=== PATIENT | female | born 1950 | race Caucasian/White ===

== ENCOUNTER → 2017-04-05 | Outpatient (CLI) | payer MEDICARE, OTHER ==
[~2017-04-05] MED LIST: ACETAMINOPHEN-1 EAC1 PO; ALDACTONE50 MG PO; ARIXTRA; BACTRIM DS TAB1 EACH PO; BONIVA150 MG PO; CIPRO250 M1 PO; COD LIVER OIL1 EAC4; DARVOCET; FISH OIL 1,001000 M2 PO; FLEXERIL; FOLIC ACID 40400 MC1; GABAPENTIN100 MG PO; GLUCOSAMINE HC500 MG; GLUCOSAMINE HC500 MG PO; INDAPAMIDE1.25 MG PO; IRON325; LEVAQUIN 500 M500 M2 PO; MECLIZINE HCL25 M1 PO; MEDROLDOSEPACK PO; MIRALAX255 GM PO; MOBIC15 MG; MOBIC15 MG PO; NEXIUM PO; NEXIUM40 MG PO; OCUVITE TABLET1 EAC1; OMEPRAZOLE 20 M20 M1; OXYBUTYNIN 5 MG5 M1 PO; OXYBUTYNIN 5 MG5 M2 PO; OXYCODONE HCL 55 MG; PERCOCET 5-3251 EACH PO; PERCOCET PO; PREDNISONE 20 M20 MG PO; PROPRANOLOL 20M20 M1 PO; PROTONIX40 M4 PO; PROZAC20 MG; PROZAC40 MG PO; STOOL SOFTNER; TAMSULOSIN HCL0.4 MG PO; TESSALON PERLE100 M1 PO; TRIPLE ANTIBIOT30 G2 TP; VENTOLIN HFA 1818 GM INH; ZOFRAN4 MG PO
== END ==
LOC: M.RAD 08:35
DX: Z12.31 Encounter for screening mammogram for malignant neoplasm of breast (principal)

== ENCOUNTER → 2017-09-24 | Outpatient (CLI) | payer MEDICARE, OTHER | LOC: M.RAD 09-17 13:30 | DX: M81.0 Age-related osteoporosis without current pathological fracture (principal); M85.89 Other specified disorders of bone density and structure, multiple sites; Z78.0 Asymptomatic menopausal state ==

== ENCOUNTER → 2018-07-11 | Outpatient (CLI) | payer MEDICARE, OTHER ==
--- NOTE | ~2018-07-11 | PAINCON ---
[address] [address] PAIN MANAGEMENT CONSULTATION Name: MAXIMYLESEDVIN KIRBY Room: [facility] MARINA Yañez#: [id number] Admission: 07/11/18 Attend Phys: Viridiana Evans MD Discharge: Date of : 54 Report #: [id number] THIS REPORT FOR: //name// CC: [place] NP DATE OF SERVICE: 07/11/2018 CHIEF COMPLAINT: Back pain with pain that is radiating down into the left and right legs. It has been problematic since 2015. She has noticed a return of low back pain and notes that it seems to have intensified. Had a Medrol Dosepak in October 2016. It was felt that was helpful. Finds that Meloxicam is helpful on a daily basis as well. Notes that her pain is worse with activities. Notes that the cold weather, walking, standing, climbing stairs, bending, and lifting are problematic. Notes that her medication, use of heat, and rest have been beneficial as well. She has a history of L5-S1 radiculopathy. She has returned to the pain clinic with the hopes of trying another conservative approach with a Medrol Dosepak. ALLERGIES: DEMEROL, CAUSE SEIZURES, ACETAMINOPHEN, FROM USE OF VICODIN, VIOXX, REGLAN, MILD NAUSEA AND VOMITING WERE EXPERIENCED. CURRENT MEDICATIONS: Fish oil, Prozac 40 mg, folic acid 400 mcg, glucosamine 500 mg, indapamide ____ mg for kidney stones, omeprazole 20 mg, oxybutynin 5 mg b.i.d., Protonix 40 mg, propranolol 20 mg, and spironolactone 50 mg. PAIN CLINIC ASSESSMENT/PQRS: 1. The patient has back problems. States that these have "given her fits now." Height 5 feet 4 inches, weight 170 pounds, BMI 29.2. 2. Vital signs; blood pressure 115/78, heart rate 71, respiratory rate 16, room air saturation 89%, temperature 97.7. Pain intensity 10/09. 3. Fall history. The patient has not fallen in the last 3 months. 4. Blood thinner. The patient is not on a blood thinning medication. 5. Hypertension. The patient is being treated for hypertension. 6. Opioid. The patient is not taking opioid medications on a regular basis. 7. Risk assessment tool, low for opioid use. 8. Functional assessment tool. 9. Recreational drug use. The patient denies use of recreational drugs. 10. Tobacco: The patient denies use of tobacco. 11. Alcohol: The patient denies frequent use of alcoholic beverages. PHYSICAL EXAMINATION: GENERAL: The patient is a well-developed, well-nourished white female. Appears her stated age. She is alert and oriented x 3. Affect is appropriate. [place] [address] PAIN MANAGEMENT CONSULTATION Name: EDVIN DENT Room: [facility] [address] Pari#: [id number] Admission: 07/11/18 Attend Phys: Viridiana Evans MD Discharge: Date of : 54 Report #: [id number] HEENT: Normocephalic, atraumatic. Extraocular eye muscles intact. Sclerae nonicteric. Mucous membranes are moist. MUSCULOSKELETAL: The patient complains of some pain and discomfort in the low back area. States it is "giving her fits." She is experiencing pain that is radiating down into her left and the right leg. IMPRESSION: 1. Lumbar radicular pain involving the left and the right leg in the L5-S1 dermatomal distribution in the past and improved with use of a Medrol Dosepak. 2. Renal stones. 3. Cervical disease with cervical radicular symptoms in the past. 4. Osteoarthritis, status post knee replacement. RECOMMENDATIONS: We will provide the patient with a Medrol Dosepak. She will take this over the next week. If her pain continues to be problematic, possibility of a lumbar epidural steroid is an option. We have discussed this with the patient. She agrees to proceed with a conservative approach with the possibility of an injection in the future. We would like to thank you for letting us participate in her care. We hope she continues to improve. By: [id number]. Nikita Evans MD /ramón
== END ==
LOC: M.PC 09:40
DX: M54.5 Low back pain (principal); M54.2 Cervicalgia; I10 Essential (primary) hypertension; Z88.8 Allergy status to other drugs, medicaments and biological substances; Z79.899 Other long term (current) drug therapy; Z79.891 Long term (current) use of opiate analgesic; Z96.659 Presence of unspecified artificial knee joint

== ENCOUNTER → 2018-07-25 | Outpatient (CLI) | payer MEDICARE, OTHER | LOC: M.RAD 09:09 | DX: Z12.31 Encounter for screening mammogram for malignant neoplasm of breast (principal) ==

== ENCOUNTER → 2018-08-19 | Outpatient (CLI) | payer MEDICARE, OTHER | LOC: M.RAD 16:39 | DX: J98.4 Other disorders of lung (principal); Z88.8 Allergy status to other drugs, medicaments and biological substances; Z95.0 Presence of cardiac pacemaker ==

== ENCOUNTER → 2019-06-13 | Outpatient (CLI) | payer MEDICARE, OTHER | LOC: M.RAD 11:16 | DX: M19.012 Primary osteoarthritis, left shoulder (principal) ==

== ENCOUNTER → 2019-09-25 | Outpatient (CLI) | payer MEDICARE, OTHER | LOC: M.RAD 09-12 11:58 | PROVIDERS: ATTEND Registered Nurse Diabetes Educator | DX: Z12.31 Encounter for screening mammogram for malignant neoplasm of breast (principal); N64.89 Other specified disorders of breast; M85.88 Other specified disorders of bone density and structure, other site ==

== ENCOUNTER → 2020-06-11 | Outpatient (CLI) | payer OTHER | LOC: M.CT 10:27 | PROVIDERS: ATTEND Registered Nurse Diabetes Educator | DX: N20.0 Calculus of kidney (principal); N30.00 Acute cystitis without hematuria; G89.29 Other chronic pain; I51.7 Cardiomegaly; J98.4 Other disorders of lung; K76.0 Fatty (change of) liver, not elsewhere classified ==

== ENCOUNTER → 2020-06-18 | Outpatient (CLI) | payer OTHER | LOC: M.RAD 14:47 | PROVIDERS: ATTEND Registered Nurse Diabetes Educator | DX: M48.05 Spinal stenosis, thoracolumbar region (principal); M25.78 Osteophyte, vertebrae; M41.85 Other forms of scoliosis, thoracolumbar region ==

== ENCOUNTER → 2020-07-27 | Outpatient (CLI) | payer OTHER ==
[~2020-07-27] MED LIST changes: +HYDROCODON-ACE1 EAC7 PO
== END ==
LOC: M.CT 07-22 11:00
PROVIDERS: ATTEND Registered Nurse Diabetes Educator
DX: N20.0 Calculus of kidney (principal); R82.90 Unspecified abnormal findings in urine; N30.00 Acute cystitis without hematuria; M54.5 Low back pain; G89.29 Other chronic pain; I51.7 Cardiomegaly; K76.0 Fatty (change of) liver, not elsewhere classified; I70.0 Atherosclerosis of aorta

== ENCOUNTER → 2020-07-29 | Outpatient (CLI) | payer OTHER | LOC: M.PC 07-22 12:00 | PROVIDERS: ATTEND Anesthesiology Pain Medicine | DX: M54.5 Low back pain (principal); M54.9 Dorsalgia, unspecified; G89.29 Other chronic pain; I10 Essential (primary) hypertension; E78.5 Hyperlipidemia, unspecified; I47.1 Supraventricular tachycardia; N20.0 Calculus of kidney; M81.0 Age-related osteoporosis without current pathological fracture; Z95.0 Presence of cardiac pacemaker; Z88.8 Allergy status to other drugs, medicaments and biological substances; Z79.899 Other long term (current) drug therapy ==

== ENCOUNTER → 2020-08-26 | Outpatient (CLI) | payer OTHER ==
[~2020-08-26] MED LIST changes: +ELIQUIS5 MG PO; +FAMOTIDINE 20 M20 MG PO
== END ==
LOC: M.PC 08:40
PROVIDERS: ATTEND Anesthesiology Pain Medicine
DX: G89.29 Other chronic pain (principal); M54.5 Low back pain; J18.9 Pneumonia, unspecified organism; R25.8 Other abnormal involuntary movements; M81.0 Age-related osteoporosis without current pathological fracture; M79.605 Pain in left leg; M79.604 Pain in right leg; I10 Essential (primary) hypertension; R78.5 Finding of other psychotropic drug in blood; I47.1 Supraventricular tachycardia; R25.1 Tremor, unspecified; Z95.0 Presence of cardiac pacemaker

== ENCOUNTER → 2020-12-22 | Outpatient (CLI) | payer OTHER | LOC: M.RAD 13:34 | PROVIDERS: ATTEND Registered Nurse Diabetes Educator | DX: Z12.31 Encounter for screening mammogram for malignant neoplasm of breast (principal) ==